=== PATIENT | male | born 1955 | race Caucasian/White ===

== ENCOUNTER 2019-06-13 13:12 | Emergency (ER) | payer OTHER, SELFPAY ==
[2019-06-13] VITALS (23 sets, daily range): BP systolic 116–155; BP diastolic 66–91; PULSE 59–82; RESP 11–30; TEMP 37.1–37.2; O2SAT 99–100
--- NOTE | 2019-06-13 13:15 | DI.RAD_ITS ---
SYMPTOMS/DIAGNOSIS: TRAUMA PORTABLE CHEST AT 13:25 HOURS: There are no prior comparison exams. The heart size is normal. There is no mediastinal widening. The aorta is mildly tortuous. The lungs are clear. There is a tiny right apical pneumothorax. No rib fractures are identified. IMPRESSION: Small right apical pneumothorax.
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
[2019-06-13] MEDS: Normal Saline 1,000 ML 1000 ML IV (13:40)
[2019-06-13 13:45] LABS: Abs Immature Grans 0.02 k/cumm (0.0-0.09); Absolute Basophil Count 0.04 k/cumm (0.0-0.2); Absolute Eosinophil Count 0.46 k/cumm (0.0-0.7); Absolute Lymphocyte Count 1.43 k/cumm (1.2-3.4); Absolute Monocyte Count 0.61 k/cumm (0.11-0.7); Absolute Neutrophil Count 5.45 k/cumm (1.2-6.7); Basophils % 0.5; Eosinophils % 5.7; HCT 43.8 % (40.0-50.0); Immature Grans % 0.2; Lymphocytes % 17.9; Mean Corp. HGB Concentration 34.2 g/dL (32.0-36.0); Mean Corpuscular Hemoglobin 30.9 pg (27.0-33.0); Mean Corpuscular Volume 90.1 fL (80-95); Mean Platelet Volume 10.9 fL (8.0-11.0); Monocytes % 7.6; Neutrophils % 68.1; Platelet Count 262 x1000/uL (130-400); RBC 4.86 m/cumm (4.50-6.00); RBC Distribution Width 13.2 % (11.8-14.1); White Blood Cell Count 8.01 k/cumm (4.4-10.8)
[2019-06-13 14:01] LABS: ALT 45 U/L (12-78); AST 36 U/L (15-37); Alkaline Phosphatase 74 U/L (46-116); Anion Gap 12.4 mmol/L (3-11); BUN 15 mg/dL (7-18); Bilirubin, Total 0.5 mg/dL (0.2-1.0); CO2 23.6 mmol/L (21.0-32.0); CREATININE 1.13 mg/dL (0.70-1.30); Calcium 9.1 mg/dL (8.5-10.1); Chloride 101 mmol/L (98-107); Glucose 131 mg/dL (70-100); Potassium 4.4 mmol/L (3.5-5.1); Sodium 137 mmol/L (136-145); Total Protein 8.1 g/dL (6.4-8.2)
[2019-06-13 14:05] LABS: Prothrombin Time 9.8 sec (9.3-11.0)
[2019-06-13] MEDS: Omnipaque 350 MG/ML 100 ML BTL IJ (14:24)
--- NOTE | 2019-06-13 15:32 | NUR.NOTE ---
Nursing Note: Patient has [facility] appt 06/15/2019 @ 5305. He is to go to diagnostic imaging @ 6331 prior to this appt. Yolanda Quevedo.
== END 2019-06-13 15:50 | disposition home or self-care (01) ==
PROVIDERS: Emergency Provider Student in an Organized Health Care Education/Training Program
DX: M54.6 Pain in thoracic spine (principal); R07.9 Chest pain, unspecified; R06.02 Shortness of breath; S22.41XA Multiple fractures of ribs, right side, initial encounter for closed fracture; S27.0XXA Traumatic pneumothorax, initial encounter; S27.321A Contusion of lung, unilateral, initial encounter; V18.0XXA Pedal cycle driver injured in noncollision transport accident in nontraffic accident, initial encounter; Y93.55 Activity, bike riding
CPT/HCPCS: 36415; 74177; 80053; 86850; 86900; 86901; 93005; 96361; 96374; 99285; 71045; 71260; 85025; 85610; 93010; J3490

== ENCOUNTER 2019-06-15 01:27 | Outpatient (CLI) | payer OTHER, SELFPAY ==
--- NOTE | 2019-06-15 08:53 | DI.RAD_ITS ---
SYMPTOM/DIAGNOSIS: PNEUMOTHORAX, RT J93.9 PA AND LATERAL CHEST: 06/15/19 The previously described right apical pneumothorax is again noted but has decreased in size in comparison with examination of 06/13/19. The lungs otherwise remain well expanded and clear. No pleural effusion is seen. Cardiac size within normal limits. CONCLUSION: :Interval decrease in size of small right apical pneumothorax. No additional new findings.
== END 2019-06-15 01:47 ==
PROVIDERS: Visit Provider Surgery
DX: J93.9 Pneumothorax, unspecified (principal)
CPT/HCPCS: 71046

== ENCOUNTER 2021-09-11 10:29 | Emergency (ER) | payer OTHER, SELFPAY ==
[2021-09-11] VITALS (23 sets, daily range): BP systolic 141–166; BP diastolic 83–113; PULSE 72–90; RESP 1–23; TEMP 36.4–36.6; O2SAT 98–100
--- NOTE | 2021-09-11 10:30 | RT.EKG_ITS ---
APPROVED REPORT Exam: Resting ECG Reason for Exam: sob Patient Location: E HR:76 bpm ECG Measurements Heart Rate 76 AXIS KS 143 P 64 QRSd 90 QRS 78 QT 358 T 50 QTc 403 Conclusion Sinus rhythm...normal P axis, V-rate 60- 99. Sinus. No STEMI. I have reviewed and interpreted ECG and agree with software generated interpretation.
[2021-09-11 11:35] LABS: Abs Immature Grans 0.02 10^3/uL (0.0-0.06); Absolute Basophil Count 0.08 10^3/uL (0.0-0.2); Absolute Lymphocyte Count 1.35 10^3/uL (1.2-3.4); Absolute Monocyte Count 0.51 10^3/uL (0.1-0.8); Absolute Neutrophil Count 2.41 10^3/uL (1.2-6.7); Basophils % 1.6; Eosinophils % 10.3; HCT 45.1 % (40.0-50.0); HGB 14.8 g/dL (13.5-17.5); Immature Grans % 0.4; Lymphocytes % 27.7; MCH 30.9 pg (27.0-33.0); MCHC 32.8 % (32.0-36.0); MCV 94.2 fL (80-95); MPV 10.2 fL (8.0-11.0); Monocytes % 10.5; Neutrophils % 49.5; Nucleated RBC 0 %; Platelet Count 298 10^3/uL (130-400); RBC 4.79 10^6/uL (4.36-5.78); RDW 12.5 % (11.8-14.1); RDW-SD 43.9 fL; WBC 4.87 10^3/uL (4.4-10.8)
[2021-09-11 11:35] LABS: Source Nasal/Nares
[2021-09-11 11:55] LABS: ALT 32 U/L (16-63); AST 26 U/L (15-37); Alkaline Phosphatase 91 U/L (46-116); Anion Gap 6.9 mmol/L (3-11); BUN 12 mg/dL (7-18); Bilirubin, Total 0.4 mg/dL (0.2-1.0); CO2 29.1 mmol/L (21.0-32.0); Calcium 9.2 mg/dL (8.5-10.1); Chloride 103 mmol/L (98-107); Glucose 99 mg/dL (74-106); Magnesium 2.3 mg/dL (1.8-2.4); NT-proBNP 58 pg/mL (<300); Potassium 4.2 mmol/L (3.5-5.1); Sodium 139 mmol/L (136-145); Total Protein 8.1 g/dL (6.4-8.2)
[2021-09-11 11:57] LABS: Troponin I < 0.05 ng/mL (<0.06)
[2021-09-11 12:18] LABS: Bilirubin Negative (Negative); Blood Negative (Negative); Clarity Clear (Clear); Glucose Negative (Negative); Ketones Negative (Negative); Leukocyte Esterase Negative (Negative); Nitrite Negative (Negative); Urobilinogen 0.2 EU/dL (Up TO 0.2); pH 8.5 (5-8)
[2021-09-11 12:31] LABS: COVID-19 PCR Negative (Negative)
--- NOTE | 2021-09-11 12:46 | DI.CT_ITS ---
Exam(s) CT CHEST PE CTA EXAM: CT CHEST PE CTA CLINICAL HISTORY: shortness of breath. TECHNIQUE: Imaging Protocol: CT angiography of the chest was performed using pulmonary embolus marcos col. Multi planar reconstructions were performed. CONTRAST MATERIAL: Intravenous: Omnipaque 350 Contrast volume: 100 cc COMPARISON: CT CT CHEST/ABD/PEL W from 06/13/2019 FINDINGS: CHEST: PULMONARY ARTERIES: There are no intraluminal filling defects to suggest acute pulmonary emboli. LUNGS: There are no infiltrates nor evidence of pulmonary infarction.. There are no pleural effusions . MEDIASTINUM: There is no hilar nor mediastinal adenopathy. Visualized thyroid unremarkable. CARDIAC: Heart size is upper normal. There is no pericardial effusion.Caliber of the thoracic aorta is within normal limits. There is no significant shift of the interventricular septum. PARTIALLY VISUALIZED UPPERMOST ABDOMEN: No obvious findings OSSEOUS: No significant osseous lesions.. IMPRESSION: 1. No evidence of acute pulmonary emboli. No evidence of pulmonary infarction.No pleural effusions. 2. No infiltrates nor ominous pulmonary nodules. 3. No intrathoracic adenopathy. RADIATION DOSE DELIVERED: 354.46mGy.cm Total DLP DATA REPOSITORY: All CT scans at this facility are submitted to the National Radiology Data Registry (NRDR) Dose Index Registry (DIR) with the [employer] (A[employer]). RADIATION OPTIMIZATION: All CT scans at this facility use at least one of these dose optimization te chniques: automated exposure control; mA and/or kV adjustment per patient size (includes targeted exa ms where dose is matched to clinical indication); or iterative reconstruction.
[2021-09-11] MEDS: Albuterol 2.5 MG/3 ML INH SOLN VIAL UPD (12:54)
--- NOTE | 2021-09-11 14:01 | ED.GENADUL_ITS ---
Discharge Plan Disposition Patient Disposition: HOME Condition: Stable Discharge Details Clinical Impression: Acute dyspnea Primary Care Provider: Beronica,Local ED Provider: Jeaneth Gonzalez Home Meds and New Rx's Prescriptions: Continued magnesium 500 mg Tablet 500 mg PO DAILY RF: 0 aspirin 325 mg Tablet 325 mg PO DAILY RF: 0 meloxicam [Mobic] 15 mg Tablet 15 mg PO DAILY RF: 0 lorazepam 0.5 mg tablet 0.5 mg PO DAILY PRNRF: 0 testosterone 10 mg/0.5 gram /actuation gel in metered-dose pump 1 pump topical DAILY RF: 0 acetaminophen [Acetaminophen Extra Strength] 500 mg Tablet 1,000 mg PO HS PRNRF: 0 Discharge Instructions Instructions: Dyspnea (ED) Additional Instructions: please 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 refrain from any strenuous exertion return with chest pain, worsening dyspnea, or should you develop progression of symptoms Discharge Data Discharge Date/Time-TO BE ENTERED AT DEPARTURE: 09/11/21 14:45 Medical Decision Making Patient has a heart score of 3, 1 troponin was checked as patient has had symptoms for 4 days Denies any current chest pain or short of breath EKG without acute abnormality, CTA does not show acute abnormality Diagnostic labs are negative for acute abnormality Patient is aware that his tests are negative, aside from his hyperlipidemia and age he has a relatively low risk for coronary artery disease, mother prefers a 3, we did talk about admission versus discharge, patient states he feels he would like to follow-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 Lab Data Lab results reviewed: Yes I reviewed the patient's lab results. ECG Data Attestation: I personally reviewed and interpreted this ECG (s) as follows: HPI General Mode of arrival: ambulatory . Date/Time Provider Initiated Documentation: 09/11/21 10:53 . Limitations to Documentation: no limitations . Information obtained by: patient . HPI Narrative: This 66-year-old male presents with family for the past 5 days. He is status post right knee replacement 5 weeks ago in [facility]. He states he actually felt quite well and his knee is healing nicely some breathlessness but actually improved with e xertion over the past 5 days. He states that this exacerbated when he is at rest and when he exerts himself or travels outside, his symptoms actually improved. He states that his symptoms are predominantly from 10:00 until 1:59 in the afternoon and then completely dequan. He denies any chest comfort. He denies any new calf pain or swelling. He has some mild discomfort in the actual knee but denies any worsening pain. He is otherwise reportedly healthy aside from history of hyperlipidemia. His father did have an MS at 64 years old reportedly. Patient does not smoke tobacco, denies any pain. Denies any current dizziness or weakness. Has been intermittently lightheaded. Denies any new medications. He discontinued the Mobic which she was wondering if it may have been contributing to his symptoms 2 days ago. He did call the nurse on- call for his physician and she recommended that he be pulmonary embolism. He denies any falls or injuries. Related Data Home Medications Medication Instructions Recorded Confirmed acetaminophen [Acetaminophen Extra 1,000 mg PO HS PRN 09/11/21 09/11/21 Strength] aspirin 325 mg PO DAILY 09/11/21 09/11/21 lorazepam 0.5 mg PO DAILY PRN 09/11/21 09/11/21 magnesium 500 mg PO DAILY 09/11/21 09/11/21 meloxicam [Mobic] 15 mg PO DAILY 09/11/21 09/11/21 testosterone 1 pump TOPICAL DAILY 09/11/21 09/11/21 Allergies Allergy/AdvReac Type Severity Reaction Status Date / Time No Known Allergies Allergy Verified 09/11/21 10:53 General Stated Complaint: SOB ALEXIS: 2 Review of Systems All systems reviewed & are unremarkable except as noted in HPI and below PFSH Medical History (Updated 09/11/21 @ 14:05 by BOO Harris) Pneumothorax on right Rib fractures Social History Smoking/Tobacco Use Status: Never Smoking risk assessment performed?: Yes Alcohol Intake: current Alcohol Intake frequency: 0-2 drinks per day Alcohol ty pe: beer Drug use: Never Substance use type: does not use Do you feel safe at home: Yes Do you feel safe in your relationship?: Yes Exam Const General: cooperative and comfortable Orientation: alert and oriented x3 Eyes Pupils: PERRL Chest Chest: normal inspection of the chest Resp Effort & Inspection: normal respiratory effort Auscultation: clear to auscultation bilaterally Cardio Rate: regular rate Rhythm: regular rhythm GI Inspection: normal to inspection Skin General skin exam: no rashes or lesions noted Neuro General: patient alert and patient oriented x3 Extrem Other: Neurovascularly intact distally, right knee with well healing laceration and postoperative site, no dehiscence, no calf swelling or tenderness Course Vital Signs Vital signs: Vital Signs Temperature 36.6 C 09/11/21 10:49 Pulse 75 09/11/21 10:49 Respiratory Rate 15 09/11/21 10:49 Blood Pressure 159/91 H 09/11/21 10:49 Pulse Oximetry 100 09/11/21 10:49 Temperature 36.6 C 09/11/21 10:49 Temperature Source Temporal Artery Scan 09/11/21 10:49 Pulse 76 09/11/21 12:15 Pulse 82 09/11/21 12:15 Respiratory Rate 23 09/11/21 12:15 Respiratory Effort Non-Labored 09/11/21 11:35 Respiratory Depth Normal 09/11/21 11:35 Respiratory Pattern Normal 09/11/21 11:35 Blood Pressure 141/98 H 09/11/21 12:15 Blood Pressure Mean 106 09/11/21 12:15 Blood Pressure Position Supine 09/11/21 10:49 Pulse Oximetry 100 09/11/21 12:54 Oxygen Delivery Method Room Air 09/11/21 12:54 Oxygen Flow Rate 0 09/11/21 12:54 Pain Level 0 09/11/21 10:49 Lab/Test Results Lab/Test Results: Laboratory Tests Range/Units 09/11/21 09/11/21 09/11/21 11:20 11:25 11:25 WBC (4.4-10.8) 10^3/uL 4.87 RBC (4.36-5.78) 10^6/uL 4.79 Hgb (13.5-17.5) g/dL 14.8 Hct (40.0-50.0) % 45.1 MCV (80-95) fL 94.2 MCH (27.0-33.0) pg 30.9 MCHC (32.0-36.0) % 32.8 RDW (11.8-14.1) % 12.5 Plt Count (130-400) 10^3/uL 298 MPV (8.0-11.0) fL 10.2 Immature Gran % 0.4 Neutrophils % 49.5 Lymphocytes % 27.7 Monocytes % 10.5 Eosinophils % 10.3 Basophils % 1.6 Nucleated RBC % % 0 Absolute Neutrophils (1.2-6.7) 10^3/uL 2.41 Absolute Lymphocytes (1.2-3.4) 10^3/uL 1.35 Absolute Monocytes (0.1-0.8) 10^3/uL 0.51 Absolute Eosinophils (0.0-0.7) 10^3/uL 0.50 Absolute Basophils (0.0-0.2) 10^3/uL 0.08 Sodium (136-145) mmol/L 139 Potassium (3.5-5.1) mmol/L 4.2 Chloride (98-107) mmol/L 103 Carbon Dioxide (21.0-32.0) mmol/L 29.1 Anion Gap (3-11) mmol/L 6.9 BUN (7-18) mg/dL 12 Creatinine (0.70-1.30) mg/dL 1.0 Estimated GFR/1.73 m2 (mL/min/1.73m2) >= 60.00 Glucose (74-106) mg/dL 99 Calcium (8.5-10.1) mg/dL 9.2 Magnesium (1.8-2.4) mg/dL 2.3 Total Bilirubin (0.2-1.0) mg/dL 0.4 AST (15-37) U/L 26 ALT (16-63) U/L 32 Alkaline Phosphatase (46-116) U/L 91 Troponin I (<0.06) ng/mL < 0.05 NT-Pro-B Natriuret Pep (<300) pg/mL 58 Total Protein (6.4-8.2) g/dL 8.1 Albumin (3.4-5.0) g/dL 4.0 Urine Color (Yellow) Yellow Urine Clarity (Clear) Clear Urine pH (5-8) 8.5 H Ur Specific [place] (1.005-1.025) 1.020 Urine Protein (Negative) mg/dL Negative Urine Ketones (Negative) mg/dL Negative Urine Blood (Negative) Negative Urine Nitrite (Negative) Negative Urine Bilirubin (Negative) Negative Urine Urobilinogen (Up TO 0.2) EU/dL 0.2 Ur Leukocyte Esterase (Negative) Negative Urine Glucose (Negative) mg/dL Negative COVID-19 Source SARS-CoV-2 (PCR) (Negative) Range/Units 09/11/21 11:30 WBC (4.4-10.8) 10^3/uL RBC (4.36-5.78) 10^6/uL Hgb (13.5-17.5) g/dL Hct (40.0-50.0) % MCV (80-95) fL MCH (27.0-33.0) pg MCHC (32.0-36.0) % RDW (11.8-14.1) % Plt Count (130-400) 10^3/uL MPV (8.0-11.0) fL Immature Gran % Neutrophils % Lymphocytes % Monocytes % Eosinophils % Basophils % Nucleated RBC % % Absolute Neutrophils (1.2-6.7) 10^3/uL Absolute Lymphocytes (1.2-3.4) 10^3/uL Absolute Monocytes (0.1-0.8) 10^3/uL Absolute Eosinophils (0.0-0.7) 10^3/uL Absolute Basophils (0.0-0.2) 10^3/uL Sodium (136-145) mmol/L Potassium (3.5-5.1) mmol/L Chloride (98-107) mmol/L Carbon Dioxide (21.0-32.0) mmol/L Anion Gap (3-11) mmol/L BUN (7-18) mg/dL Creatinine (0.70-1.30) mg/dL Estimated GFR/1.73 m2 (mL/min/1.73m2) Glucose (74-106) mg/dL Calcium (8.5-10.1) mg/dL Magnesium (1.8-2.4) mg/dL Total Bilirubin (0.2-1.0) mg/dL AST (15-37) U/L ALT (16-63) U/L Alkaline Phosphatase (46-116) U/L Troponin I (<0.06) ng/mL NT-Pro-B Natriuret Pep (<300) pg/mL Total Protein (6.4-8.2) g/dL Albumin (3.4-5.0) g/dL Urine Color (Yellow) Urine Clarity (Clear) Urine pH (5-8) Ur Specific [place] (1.005-1.025) Urine Protein (Negative) mg/dL Urine Ketones (Negative) mg/dL Urine Blood (Negative) Urine Nitrite (Negative) Urine Bilirubin (Negative) Urine Urobilinogen (Up TO 0.2) EU/dL Ur Leukocyte Esterase (Negative) Urine Glucose (Negative) mg/dL COVID-19 Source Nasal/Nares SARS-CoV-2 (PCR) (Negative) Negative PAWSS Have you Been Recently Intoxicated or Drunk Within the Last 30 days?: No Have you Ever Experienced Previous Episodes of Alcohol Withdrawal?: No Have you ever Experienced Withdrawal Seizures?: No Have you ever Experienced Delirium Tremens(DT)s?: No Have you ever undergone Alcohol Rehabilitation Treatment (i.e, inpt ot outpatient treatment programs)?: No Have you ever Experienced Blackouts?: No Have you ever Combined Alcohol with other Downers within the last 90 days?: No Have you ever Combined Alcohol with any other Substance of Abuse during the last 90 days?: No Positive Blood Alcohol level on Presentation? [PCS.BAL]: No Evidence of Increased Autonomic Activity (i.e. HR>120, tremor, sweating, agitation, nausea)?: No Result: 0
== END 2021-09-11 14:45 | disposition home or self-care (01) ==
PROVIDERS: Emergency Provider Physician Assistant
DX: R06.00 Dyspnea, unspecified (principal); R06.02 Shortness of breath
CPT/HCPCS: 36415; 71275; 80053; 87635; 93005; 94640; 99285; 81003; 83735; 83880; 84484; 85025; 93010; 99284; J7613

== ENCOUNTER 2023-04-12 07:11 | Observation (INO) | payer OTHER, SELFPAY ==
[2023-04-12] VITALS (32 sets, daily range): BP systolic 121–189; BP diastolic 67–101; PULSE 56–97; RESP 9–28; TEMP 36.1–36.7; O2SAT 94–99
--- NOTE | 2023-04-12 | DI.MRI_ITS ---
Exam(s) MR BRAIN WO EXAM: MR BRAIN WO CLINICAL HISTORY: TIA (vertiginous symptoms) TECHNIQUE: Multiplanar multisequence MRI of the brain was performed. COMPARISON: CT CT BRAIN NECK CTA from 04/12/2023 FINDINGS: VENTRICLES AND EXTRA AXIAL SPACES: Normal in size and morphology for the patient's age. MIDLINE SHIFT: None. CEREBRAL PARENCHYMA: No focus of restricted diffusion to suggest acute infarct. No space-occupying le narciso identified. There are few scattered hyperintense foci in the white matter on the FLAIR and T2 we ighted images likely reflecting small vessel ischemic disease. HEMORRHAGE: None. BRAINSTEM/CEREBELLUM: Normal. CALVARIUM: Normal. VISUALIZED PARANASAL SINUSES/MASTOIDS:There is mucosal thickening in the maxillary sinuses and ethmoi d air cells bilaterally. The remaining visualized paranasal sinuses and the mastoid air cells are cl ear. [place]: Normal flow void. PITUITARY GLAND: Unremarkable. OTHER FINDINGS: None. IMPRESSION: 1. No acute infarct is identified. 2. Scattered hyperintense white matter foci on the FLAIR and T2 weighted images likely reflecting sma ll vessel ischemic disease. 3. Mild sinus disease. DATA REPOSITORY:
--- NOTE | 2023-04-12 06:30 | RT.EKG_ITS ---
APPROVED REPORT Exam: Resting ECG Reason for Exam: dizziness Patient Location: E HR:62 bpm ECG Measurements Heart Rate 62 AXIS AK 153 P 80 QRSd 95 QRS 80 QT 415 T 48 QTc 422 Conclusion Sinus rhythm...normal P axis, V-rate 60- 99 sinus rhythm, normal axis, normal intervals ,nonischemic
--- NOTE | 2023-04-12 06:45 | DI.CT_ITS ---
Exam(s) CT BRAIN NECK CTA EXAM: CT BRAIN NECK CTA CLINICAL HISTORY: vertigo, left ear pain, headache. TECHNIQUE: Imaging Protocol: Axial CT angiography was performed with multi-slice acquisition and mu lti-planar and/or 3D reconstructions. CONTRAST MATERIAL: Intravenous: Omnipaque 350 contrast volume:85 mL COMPARISON: CT CT CHEST PE CTA from 09/11/2021 FINDINGS: CT Head W/O and W: Ventricles and Extra axial spaces: Normal in size and morphology for the patient's age. Hemorrhage: None. Cerebral parenchyma: No acute territorial infarct. There is a normal michaud-white matter differentiati on. Midline shift: None. Brainstem/Cerebellum: Normal. Calvarium: Normal. Visualized Paranasal sinuses/Mastoids: There is mild mucosal thickening in the maxillary sinuses bila terally. There is also mild mucosal thickening in the ethmoid air cells and sphenoid sinuses. No fl uid levels are seen in the visualized paranasal sinuses. The mastoid air cells are clear. Soft Tissues: Unremarkable. Enhancement: Unremarkable. CTA Neck W: Common Carotid: Right: No dissection, occlusion or significant stenosis. There is atherosclerosis of the distal righ t common carotid artery. Left: No dissection, occlusion or significant stenosis. Atherosclerosis is seen in the carotid bulb. External Carotid: Right: No occlusion or significant stenosis. Left: No occlusion or significant stenosis. Internal Carotid: Right: No dissection, occlusion or significant stenosis. There is mild atherosclerosis seen at the o rigin of the right internal carotid artery. Left: No dissection, occlusion or significant stenosis. There is mild atherosclerosis seen at the or igin of the left internal carotid artery. Vertebral Artery: Right: No dissection, occlusion or significant stenosis. Left: There is a linear lucency through the vertebral artery at the level of the body of C2. (Series 16, image 407 and 408.). No occlusion or stenosis is seen. Lung Apices: Normal. Bones: Within normal limits for the patient's age. Soft Tissues: Normal. Thyroid gland: Unremarkable. CTA Brain W: Internal Carotid Arteries: Mild atherosclerosis. No occlusion, aneurysm or significant stenosis. Anterior Cerebral Arteries: Right: No aneurysm, occlusion or significant stenosis. Left: No aneurysm, occlusion or significant stenosis. Middle Cerebral Arteries: Right: No aneurysm, occlusion or significant stenosis. Left: No aneurysm, occlusion or significant stenosis. Posterior Cerebral Arteries: Right: No aneurysm, occlusion or significant stenosis. Left: No aneurysm, occlusion or significant stenosis. Vertebral Arteries: Right: No aneurysm, occlusion or significant stenosis. Left: No aneurysm, occlusion or significant stenosis. Basilar Artery: No aneurysm, occlusion or significant stenosis. IMPRESSION: 1. No large vessel occlusion or significant stenosis on the CT angiography of the head. 2. No acute intracranial process. 3. Lucency seen through the left vertebral artery at the level of C2. This may represent a dissection . 4. Findings were discussed with Dr. Lucía Benton at 10:50 a.m. on 04/12/2023. RADIATION DOSE DELIVERED: 2,316.65mGy.cm Total DLP DATA REPOSITORY: All CT scans at this facility are submitted to the National Radiology Data Registry (NRDR) Dose Index Registry (DIR) with the [employer] (ACR). RADIATION OPTIMIZATION: All CT scans at this facility use at least one of these dose optimization te chniques: automated exposure control; mA and/or kV adjustment per patient size (includes targeted exa ms where dose is matched to clinical indication); or iterative reconstruction.
--- NOTE | 2023-04-12 06:45 | DI.RAD_ITS ---
Exam(s) XR CHEST 2V PA LATERAL EXAM: XR CHEST 2V PA LATERAL CLINICAL HISTORY: vertigo TECHNIQUE: 2D digital imaging was performed of the chest. Two images were obtained. PA and lateral views were obtained. COMPARISON: CR XR CHEST 2V PA LATERAL from 06/15/2019 FINDINGS: MEDIASTINUM: Normal. HEART: Normal. PULMONARY VASCULATURE: Normal. LUNGS: Clear. PLEURAL SPACE: No pleural effusion or pneumothorax. BONE:Within normal limits for the patient's age. OTHER FINDINGS:Normal. IMPRESSION: No acute pulmonary findings. DATA REPOSITORY: RADIATION DOSE DELIVERED:
--- NOTE | 2023-04-12 06:55 | ED.GENADUL_ITS ---
Discharge Plan Discharge Details Chief Complaint: Dizzy/Sync Primary Care Provider: Unknown,Unknown ED Provider: Regino Franz Home Meds and New Rx's Prescriptions: No Action magnesium 500 mg Tablet 500 mg PO DAILY aspirin 325 mg Tablet 325 mg PO DAILY meloxicam [Mobic] 15 mg Tablet 15 mg PO DAILY lorazepam 0.5 mg tablet 0.5 mg PO DAILY PRN testosterone 10 mg/0.5 gram /actuation gel in metered-dose pump 1 pump topical DAILY acetaminophen [Acetaminophen Extra Strength] 500 mg Tablet 1,000 mg PO HS PRN Medical Decision Making 68-year-old male awoke with left ear ringing a loud sound, got up and felt off balance fell to the ground, no loss of conscious, denies chest pain or shortness of breath. Endorses resolution of symptoms. No chest pain or shortness of breath. No history of coronary disease or stroke. Patient alert oriented cranial nerves II through XII intact normal speech 5-5 strength upper and lower extremities no ataxia. Noted to be hypertense on arrival. Consider peripheral vertigo versus hypertensive urgency/hypertensive emergency must consider CVA ischemic versus hemorrhagic versus sinus pressure versus orthostatic presyncope versus atypical ACS. Will obtain CT CTA head neck, labs, chest x-ray EKG, trial of meclizine Zofran dexamethasone, fluids close reassessment. 7: 32 patient resting notably no acute distress disposition pending results of blood work and imaging as well as reassessment of symptoms. Patient signed out to Dr. Benton for reassessment and disposition. HPI General Date/Time Provider Initiated Documentation: 04/12/23 07:32 . HPI Narrative: 68-year-old male presents after near syncopal episode awoke this morning with loud sound in his left ear ringing after she attempted to walk and felt off balance and collapsed to the floor. Endorses improved symptomatology. No headache no nausea no vomiting no chest pain or shortness of breath. Related Data Home Medications Medication Instructions Recorded Confirmed acetaminophen 500 mg tablet 1,000 mg PO HS PRN 09/11/21 09/11/21 (Acetaminophen Extra Strength) aspirin 325 mg tablet 325 mg PO DAILY 09/11/21 09/11/21 lorazepam 0.5 mg tablet 0.5 mg PO DAILY PRN 09/11/21 09/11/21 magnesium 500 mg tablet 500 mg PO DAILY 09/11/21 09/11/21 meloxicam 15 mg tablet (Mobic) 15 mg PO DAILY 09/11/21 09/11/21 testosterone 10 mg/0.5 1 pump topical DAILY 09/11/21 09/11/21 gram/actuation transdermal gel pump Allergies Allergy/AdvReac Type Severity Reaction Status Date / Time [id number] Reductase Allergy Unverified 04/12/23 07:32 Inhibitor General Stated Complaint: Dizzy/Sync ALEXIS: 2 Review of Systems Narrative: Review of Systems Constitutional: negative Eyes: negative ENT: Tinnitus Cardiovascular: negative Respiratory: negative Gastrointestinal: negative : negative Musculoskeletal: negative Skin: negative Neurologic: Dizziness Psych: negative PFSH All Active Problems (Updated 09/11/21 @ 14:05 by BOO Harris) Acute dyspnea (Acute) Asymmetrical sensorineural hearing loss (Acute) Vertigo (Acute) Unilateral deafness (Acute) Tinnitus of left ear (Acute) Rib fractures (Acute) Pneumothorax on right (Acute) Social History Smoking/Tobacco Use Status: Never Smoking risk assessment performed?: Yes Alcohol Intake: current Alcohol Intake frequency: 0-2 drinks per day Alcohol type: beer Drug use: Never Substance use type: does not use Do you feel safe at home: Yes Do you feel safe in your relationship?: Yes Exam Narrative Exam Narrative: Physical Examination General: alert, awake, cooperative, resting comfortably, no acute distress HEENT: normocephalic, atraumatic; PERRL, EOM intact, conjunctiva normal; no nasal discharge; moist mucous membranes, oral and pharyngeal mucosa normal, tolerating secretions; TMs clear bilaterally Neck: supple, trachea midline; full ROM Chest: normal to inspection Respiratory: normal respiratory effort, speaking in full sentences, clear to auscultation, no wheezing, rales or rhonchi Cardiac: regular rate, regular rhythm, S1S2 intact, no murmurs rubs or gallops GI: abdomen soft, non-tender, non-distended; no palpable mass or hepatosp lenomegaly Skin: no lesions, rashes or trauma appreciated Neuro: AAOx3, normal speech, moving all extremities; cranial nerves II through XII intact, 5/5 strength upper and lower extremities, no truncal ataxia Psych: Appropriate mood and affect Course Vital Signs Vital signs: Vital Signs Temperature 36.7 C 04/12/23 06:39 Pulse 62 04/12/23 06:39 Respiratory Rate 16 04/12/23 06:39 Blood Pressure 189/101 H 04/12/23 06:39 Pulse Oximetry 97 04/12/23 06:39 Temperature 36.7 C 04/12/23 06:39 Temperature Source Oral 04/12/23 06:39 Pulse 62 04/12/23 06:39 Respiratory Rate 16 04/12/23 06:39 Blood Pressure 189/101 H 04/12/23 06:39 Blood Pressure Position Supine 04/12/23 06:39 Pulse Oximetry 97 04/12/23 06:39 Oxygen Delivery Method Room Air 04/12/23 06:39 Oxygen Flow Rate 0 04/12/23 06:39 Pain Level 0 04/12/23 06:39
[2023-04-12] MEDS: Dexamethasone 10 MG/ML VIAL IVP (07:25)
[2023-04-12] MEDS: Meclizine 25 MG TAB PO (07:26)
[2023-04-12] MEDS: Normal Saline 500 ML 1000 ML IV (07:26)
[2023-04-12 07:40] LABS: Abs Immature Grans 0.02 10^3/uL (0.0-0.06); Absolute Basophil Count 0.08 10^3/uL (0.0-0.2); Absolute Eosinophil Count 0.85 10^3/uL (0.0-0.7); Absolute Lymphocyte Count 1.91 10^3/uL (1.2-3.4); Absolute Monocyte Count 0.73 10^3/uL (0.1-0.8); Basophils % 1.3; Eosinophils % 13.5; HCT 45.9 % (40.0-50.0); HGB 15.3 g/dL (13.5-17.5); Immature Grans % 0.3; Lymphocytes % 30.4; MCH 30.5 pg (27.0-33.0); MCHC 33.3 % (32.0-36.0); MCV 91 fL (80-95); MPV 10.9 fL (8.0-11.0); Monocytes % 11.6; Neutrophils % 42.9; Platelet Count 241 10^3/uL (130-400); RBC 5.02 10^6/uL (4.36-5.78); RDW 12.6 % (11.8-14.1); RDW-SD 42.2 fL; WBC 6.29 10^3/uL (4.4-10.8)
[2023-04-12 07:46] LABS: INR 0.9 (0.9-1.1); PTT Activated 26.6 sec (21.5-31.9); Prothrombin Time 9.6 sec (9.3-11.0)
[2023-04-12 07:50] LABS: ALT 42 U/L (16-63); AST 33 U/L (15-37); Albumin 3.7 g/dL (3.4-5.0); Alkaline Phosphatase 94 U/L (46-116); Anion Gap 6.4 mmol/L (3-11); BUN 13 mg/dL (7-18); Bilirubin, Total 0.9 mg/dL (0.2-1.0); CO2 28.6 mmol/L (21.0-32.0); CREATININE 1.3 mg/dL (0.70-1.30); Calcium 8.8 mg/dL (8.5-10.1); Chloride 102 mmol/L (98-107); Estimated GFR 60.59 (mL/min/1.73m2); Glucose 101 mg/dL (74-106); Potassium 3.9 mmol/L (3.5-5.1); Sodium 137 mmol/L (136-145); Total Protein 7.8 g/dL (6.4-8.2); Troponin I < 50 ng/L (<or=60)
[2023-04-12] MEDS: Normal Saline - Diluent 50 ML VIAL IJ (08:10)
[2023-04-12] MEDS: Omnipaque 350 MG/ML 500 ML BTL-Imaging package IJ (08:11)
[2023-04-12] MEDS: Normal Saline 1,000 ML 1000 ML IV (08:39)
--- NOTE | 2023-04-12 10:16 | NUR.NOTE ---
Nursing Note: This RN took report at 1000. Pt in bed and comfortable at time of report. Pt updated with plan of care and pt has call light within reach.
--- NOTE | 2023-04-12 10:43 | W.EDPROG ---
Date of service: 04/12/23 Time of Service: 12:25 Medical Decision Making I, Mateusz Benton, took signout on this patient. In summary 68-year-old gentleman who presented with vertiginous type symptoms and now resolved. Symptom-free with normal neurologic exam at the time of my evaluation and NIH score of 0. Labs, EKG, and chest x-ray unremarkable. Signed out to me pending CT head and CTA head and neck. CT head unremarkable but CTA showing possible left vertebral artery dissection versus artifact. He was reporting some right-sided neck pain. In the context of his symptoms and this finding I reached out to neurology and spoke to Joanna Miranda who recommends admission for MRI, echo, and medical management. I have given 324 of aspirin. Patient initially hesitant to stay but then agreeable to stay in the hospital. Still symptom-free. Admitted to the hospitalist for further treatment and monitoring. Medical Records Medical records reviewed: Yes I reviewed the patient's medical records. Imaging Data Radiologic Study: Imaging: CT Scan (ct head) Radiologist's impression: IMPRESSION: 1. No large vessel occlusion or significant stenosis on the CT angiography of the head.? 2. No acute intracranial process.? 3. Lucency seen through the left vertebral artery at the level of C2. This may represent a dissection. 4. Findings were discussed with Dr. Lucía Benton at 10:50 a.m. on 04/12/2023. Radiologic Study #2: Attestation: I personally reviewed and interpreted this imaging study as follows: Imaging: X-Ray (chest) Radiologist's impression: Unremarkable Lab Data Lab results reviewed: Yes I reviewed the patient's lab results. ECG Data Attestation: I personally reviewed and interpreted this ECG (s) as follows: Prior ECG tracings: available for review Interpretation: Normal sinus rhythm with normal rate and otherwise unremarkable EKG with no ST or T wave changes. Critical Care Time Critical Care Time Critical Care Time: Yes Total Critical Care Time: 30 Sign Out Sign Out Data: Sign Out Comment: left ear tinnitus, balance issue, collapse; pending CTA head, labs, reassessment for disposition Last updated by Regino Franz MD at 04/12/23 07:34 Discharge Plan Disposition Patient Disposition: Admit to [facility] Discharge Details Chief Complaint: Dizzy/Sync Clinical Impression: Vertigo, Brain TIA, Dissection, vertebral artery Primary Care Provider: Unknown,Unknown ED Provider: Mateusz Benton Home Meds and New Rx's Prescriptions: No Action magnesium 500 mg Tablet 500 mg PO DAILY aspirin 325 mg Tablet 325 mg PO DAILY Patient Comments: no longer taking meloxicam [Mobic] 15 mg Tablet 15 mg PO DAILY Patient Comments: no longer taking lorazepam 0.5 mg tablet 0.5 mg PO DAILY PRN testosterone 10 mg/0.5 gram /actuation gel in metered-dose pump 1 pump topical DAILY acetaminophen [Acetaminophen Extra Strength] 500 mg Tablet 1,000 mg PO HS PRN aspirin [Aspir-81] 81 mg Tablet,Delayed Release (Dr/Ec) 81 mg PO DAILY
--- NOTE | 2023-04-12 11:12 | DI.VRAD_ITS ---
PROCEDURE INFORMATION: Exam: CTA Head With Contrast, Arteriography Exam date and time: 04/12/2023 8:09 AM Age: 68 years old Clinical indication: Other: Vertigo, left ear pain, headache TECHNIQUE: Imaging protocol: Computed tomographic angiography of the head with contrast. Exam focused on the arteries. 3D rendering (Not supervised by radiologist): MIP and/or 3D reconstructed images were created by the technologist. COMPARISON: No relevant prior studies available. FINDINGS: ANTERIOR CIRCULATION: Right internal carotid artery: Intracranial segment is patent with no significant stenosis. No aneurysm. Right middle cerebral artery: No occlusion or significant stenosis. No aneurysm. Right anterior cerebral artery: No occlusion or significant stenosis. No aneurysm. Left internal carotid artery: Intracranial segment is patent with no significant stenosis. No aneurysm. Left middle cerebral artery: No occlusion or significant stenosis. No aneurysm. Left anterior cerebral artery: No occlusion or significant stenosis. No aneurysm. POSTERIOR CIRCULATION: Right vertebral artery: No occlusion or significant stenosis. No aneurysm. Left vertebral artery: No occlusion or significant stenosis. No aneurysm. Basilar artery: No occlusion or significant stenosis. No aneurysm. Right posterior cerebral artery: No occlusion or significant stenosis. No aneurysm. Left posterior cerebral artery: No occlusion or significant stenosis. No aneurysm. Straight sinus: There is asymmetric enlargement of the right portion of the vena cava compared to the junction with the inferior sagittal sinus. Inseparable from the vena Marc is enlargement of the pineal gland that shows peripheral calcification. I do not believe this to be an aneurysm. Brain: See Straight sinus finding. Cerebral ventricles: No ventriculomegaly. Paranasal sinuses: Mucoperiosteal thickening involving the sphenoid sinuses. Bones/joints: Unremarkable. No acute fracture. Soft tissues: Unremarkable. IMPRESSION: 1. No acute intracranial findings. 2. The area of the pineal gland likely shows rim calcification of the gland, definitively excluding an aneurysm (very unlikely) is not possible. There is also enlargement of the portion of the vena Marc. 3. Paranasal sinusitis. PROCEDURE INFORMATION: Exam: CTA Neck With Contrast Exam date and time: 04/12/2023 8:09 AM Age: 68 years old Clinical indication: Other: Vertigo, left ear pain, headache TECHNIQUE: Imaging protocol: Computed tomographic angiography of the neck with contrast. 3D rendering (Not supervised by radiologist): MIP and/or 3D reconstructed images were created by the technologist. COMPARISON: CT CHEST PE CTA 09/11/2021 12:37 PM FINDINGS: Right common carotid artery: No stenosis. No dissection or occlusion. Right internal carotid artery: There is a large quantity of plaque burden of the bulb of the internal carotid artery. This results 50% stenosis of the proximal portion of the internal carotid artery. No dissection or occlusion. Right external carotid artery: Plaque within the bulbar areas in 40% stenosis of the proximal right external carotid artery. Left common carotid artery: No stenosis. No dissection or occlusion. Left internal carotid artery: Proximal portion has 25% stenosis. No dissection or occlusion. Left external carotid artery: No occlusion or stenosis of the origin. Right vertebral artery: No stenosis. No dissection or occlusion. Left vertebral artery: No stenosis. No dissection or occlusion. Soft tissues: Normal. No significant soft tissue swelling. Bones/joints: No acute fracture. IMPRESSION: 1. Approximally 50% stenosis of the proximal portion of the right internal carotid artery. 2. There has approximally 40% stenosis of the proximal right external carotid artery. 3. 25% stenosis of the proximal left internal carotid artery. REFERENCES: NASCET CRITERIA. The degree of stenosis in the cervical segment of the internal carotid artery is based on NASCET criteria. Normal is no stenosis. Mild is less than 50% stenosis. Moderate is 50-69% stenosis. Severe is 70% to 99% stenosis. Total occlusion is no detectable patent lumen. Dictated and Authenticated by: Bulmaro Berman MD. Ordering:NICA Lacy MD
--- NOTE | 2023-04-12 11:13 | DI.VRAD_ITS ---
PROCEDURE INFORMATION: Exam: XR Chest Exam date and time: 04/12/2023 8:27 AM Age: 68 years old Clinical indication: Other: Vertigo TECHNIQUE: Imaging protocol: Radiologic exam of the chest. Views: 2 views. COMPARISON: CT CHEST PE CTA 09/11/2021 12:37 PM FINDINGS: Lungs: Unremarkable. No consolidation. Pleural spaces: Unremarkable. No pleural effusion. No pneumothorax. Heart/Mediastinum: Unremarkable. No cardiomegaly. Bones/joints: Mild degenerative changes of the osseous structures. IMPRESSION: No acute findings. Dictated and Authenticated by: Bulmaro Berman MD. Ordering:PIRWIN Lacy MD
[2023-04-12] MEDS: Aspirin 325 MG TAB PO (12:24)
--- NOTE | 2023-04-12 12:29 | W.PM.HP.N ---
Date of service: 04/12/23 Time of Service: 12:29 Assessment and Plan Assessment and plan (1) Vertigo: Status: Acute Assessment and plan: Treat with PABLITO. Will monitor on tele. Obtain echo, MRI. Check A1C, Fasting lipid panel, TSH, b12. Neuro checks. Neurology consult. (2) Dissection, vertebral artery: Status: Acute Assessment and plan: Not clear if this is related to the patient's symptoms. Will await further recommendations by Dr Nichols (3) Hypertension: Status: Chronic Assessment and plan: Follow permissive hypertension strategy. (4) DVT prophylaxis: Status: Acute Assessment and plan: Lovenox SC (5) Discharge planning issues: Status: Acute Assessment and plan: Full code Place in observation status. discussed with DR Alan History of Present Illness History of Present Illness Chief Complaint: Vertigo Narrative: Mr Philip is a 68 year old male with PMHx of hearing loss, hyperlipidemia, pneumothorax in the past who woke up this morning with vertiginous symptoms that have resolved in the ED. His CT of the head was negative. CTA of the head and neck showed a possible dissection of the left vertebral artery. The patient is reported to have R neck discomfort, which does not match the location of the suspected dissection. The case was discussed with Dr Nichols, who recommended treating this as a TIA with PABLITO, statin (the patient states he is intolerant), monitoring on telemetry, obtaining an echo and an MRI as well as bloodwork. Observation on the hospitalist service was requested. 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 Hypogonadism male WADE (obstructive sleep apnea) Surgical History S/p total knee replacement, bilateral Social History Smoking/Tobacco Use Status: Never Smoking risk assessment performed?: Yes Alcohol Intake: current Alcohol Intake frequency: 0-2 drinks per day Alcohol type: beer Drug use: Never Substance use type: does not use Household members: spouse current occupation: [employer] - [employer] Do you feel safe at home: Yes Do you feel safe in your relationship?: Yes Meds Allergies and Home Medications Allergies Allergy/AdvReac Type Severity Reaction Status Date / Time [id number] Reductase Allergy Unverified 04/12/23 07:32 Inhibitor Home Medications Medication Instructions Recorded Confirmed Type acetaminophen 500 mg tablet 1,000 mg PO HS PRN 09/11/21 04/12/23 History (Acetaminophen Extra Strength) lorazepam 0.5 mg tablet 0.5 mg PO DAILY PRN 09/11/21 04/12/23 History magnesium 500 mg tablet 500 mg PO DAILY 09/11/21 04/12/23 History meloxicam 15 mg tablet (Mobic) 15 mg PO DAILY 09/11/21 09/11/21 History testosterone 10 mg/0.5 1 pump topical DAILY 09/11/21 04/12/23 History gram/actuation transdermal gel pump aspirin 81 mg tablet,delayed 81 mg PO DAILY 04/12/23 04/12/23 History release clopidogrel 75 mg tablet 75 mg PO DAILY #30 tabs 04/13/23 Rx esomeprazole magnesium 20 mg 20 mg PO DAILY #30 caps 04/13/23 Rx capsule,delayed release (Nexium) Exam Narrative Exam Narrative: General: [] Neurological: [] Psychiatric: [] Skin: [] HEENT: [] Cardiovascular: [] Lungs: [] Gastrointestinal: [] Genitourinary: [] Extremities: [] Const General: cooperative, healthy appearing, comfortable and no acute distress Nutritional Appearance: average body habitus Orientation: alert, awake and oriented x3 HENMT Head: normal to inspection, normocephalic and atraumatic Face and sinus: normal facial exam Mouth: oral mucosae normal Eyes General: appearance normal, both eyes and all related structures Neck Neck: normal visual inspection Chest Chest: normal inspection of the chest Resp Effort & Inspection: normal respiratory effort Cardio Rate: regular rate Rhythm: regular rhythm (sinus rhythm on the monitor, no ectopy) GI Inspection: normal to inspection Skin General skin exam: no rashes or lesions noted Neuro General: patient alert, patient awake, patient oriented x3, gait normal and no focal motor deficits Extrem General: normal to inspection, full ROM and no pedal edema Psych Appearance: grossly normal Mental Status: mental status grossly normal Speech and Movement: speech and movement normal Mood: congruent mood Affect: normal affect Attitude: cooperative Thought Process: normal Thought Content: normal Insight: insight good Judgment: judgment good Results Imaging Additional studies: CT/CTA head/neck; 1. No large vessel occlusion or significant stenosis on the CT angiography of the head.? 2. No acute intracranial process.? 3. Lucency seen through the left vertebral artery at the level of C2. This may represent a dissection. CXR: No acute findings. EKG: HR 62, NSR, no acute ischemia Labs 04/13/23 06:20 04/13/23 06:20 Labs: Laboratory Results - last 24 hr 04/12/23 04/12/23 04/12/23 06:45 06:45 06:45 WBC 6.29 RBC 5.02 Hgb 15.3 Hct 45.9 MCV 91 MCH 30.5 MCHC 33.3 RDW 12.6 Plt Count 241 MPV 10.9 Immature Gran % 0.3 Neutrophils % 42.9 Lymphocytes % 30.4 Monocytes % 11.6 Eosinophils % 13.5 Basophils % 1.3 Nucleated RBC % 0.0 Absolute Neutrophils 2.70 Absolute Lymphocytes 1.91 Absolute Monocytes 0.73 Absolute Eosinophils 0.85 H Absolute Basophils 0.08 PT 9.6 INR 0.9 APTT 26.6 Sodium 137 Potassium 3.9 Chloride 102 Carbon Dioxide 28.6 Anion Gap 6.4 BUN 13 Creatinine 1.3 Est GFR (CKD-EPI 2020) 60.59 Glucose 101 Calcium 8.8 Total Bilirubin 0.9 AST 33 ALT 42 Alkaline Phosphatase 94 Troponin I < 50 Total Protein 7.8 Albumin 3.7 Last Vital Signs Temp 36.7 C 04/12/23 06:39 Pulse 90 04/12/23 12:27 Resp 18 04/12/23 12:27 BP 151/76 H 04/12/23 12:27 Pulse Ox 99 04/12/23 12:27 PAWSS Have you Been Recently Intoxicated or Drunk Within the Last 30 days?: No Have you Ever Experienced Previous Episodes of Alcohol Withdrawal?: No Have you ever Experienced Withdrawal Seizures?: No Have you ever Experienced Delirium Tremens(DT)s?: No Have you ever undergone Alcohol Rehabilitation Treatment (i.e, inpt ot outpatient treatment programs)?: No Have you ever Experienced Blackouts?: No Have you ever Combined Alcohol with other Downers within the last 90 days?: No Have you ever Combined Alcohol with any other Substance of Abuse during the last 90 days?: No Positive Blood Alcohol level on Presentation? [PCS.BAL]: No Evidence of Increased Autonomic Activity (i.e. HR>120, tremor, sweating, agitation, nausea)?: No Result: 0 Time Spent Time spent with Patient: 40-54 minutes Time was spent: preparing to see the patient(eg.review tests), ordering medications,tests, procedures and referring, communicating with other health healthcare associate
[2023-04-12 12:56] LABS: Lab Add On Test DONE
--- NOTE | 2023-04-12 13:10 | NUR.NOTE ---
Nursing Note: Octavio took report on pt going to room 218. pt updated and comfortable at this time
[2023-04-12] MEDS: Clopidogrel 300 MG TAB PO (14:30)
--- NOTE | 2023-04-12 14:50 | DI.US_ITS ---
APPROVED REPORT EXAM: Comprehensive 2D, Doppler, and color-flow Echocardiogram Patient Location: In-Patient Room/Bed: 216 Re Recording Mixer: Anuja Ragland RDCS (AE) Indications: TIA Other Information Study Quality: Adequate Conclusion Normal left ventricular wall thickness and chamber size. Ejection fraction is 60%. Wall motion is n ormal Normal right ventricular size and systolic function Both atria are normal in size There is no structural or hemodynamically significant valvular disease Right ventricular systolic pressure could not be estimated Wall motion Left Ventricle The left ventricle is normal size. The left ventricular systolic function is normal. The left ventric ular ejection fraction is within the normal range. There is normal left ventricular wall thickness. T here is normal LV segmental wall motion. There is no ventricular septal defect visualized. LVEF is 59 %. Right Ventricle The right ventricle is normal size. The right ventricular systolic function is normal. Atria The left atrium size is normal. The right atrium size is normal. The interatrial septum is intact wit h no evidence for an atrial septal defect. Aortic Valve The aortic valve is normal in structure. Aortic valve is trileaflet. There is no aortic valvular sten osis. No aortic regurgitation is present. Mitral Valve The mitral valve is normal in structure. No evidence of mitral valve stenosis. Trace mitral regurgi tation. Tricuspid Valve The tricuspid valve is normal in structure. There is no tricuspid valve stenosis. Trace tricuspid reg urgitation. Unable to assess PA pressure. Pulmonic Valve The pulmonary valve is normal in structure. There is no pulmonic valvular stenosis. There is no pulmo mason valvular regurgitation. Great Vessels The aortic root is normal in size. The ascending aorta is normal in size. Aortic arch is normal in ca liber. IVC is normal in size and collapses >50% with inspiration. Pericardium There is no pericardial effusion. 2D Dimensions IVSD d PLAX 1.04 cm M: 0.6-1.2 LV Vol A2C d MOD 76.4 mL LVPW d PLAX 0.86 cm M: 0.6 - 1.2 LV Vol A4C d MOD 100.9 mL LVID d PLAX 4.81 cm M: 4.2 - 5.8 LA vol/ BSA A2C s A-L 21.9 mL/m2 LVDs 3.15 cm M: 2.5 - 4.0 LA vol/ BSA A4C s A-L 20.5 mL/m2 Ao Root d 3.36 cm M: 3.1 - 3.7 LA Vol/ BSA Biplane s A-L 22.4 mL/m2 RA Area A4C 10.70 cm2 LA Area A4C s MOD 16.75 cm2 RA Vol/ BSA A4C s A-L 9.5 mL/m2 LA Area A2C s MOD 16.43 cm2 Ao Asc Diam d 3.35 cm M: 2.6 - 3.4 LV EF A4C MOD 58.4 % LV EF Teichholz 62.4 % LV EF A2C MOD 60.1 % LVEF (Frey's) 59.07 % M: 52 - 72 LV EF Biplane MOD 59.1 % LV Volume 66.65 mL M: 62 - 150 SV 53.63 mL LV Volume Index 31.14 mL/m2 M: 34 - 74 SV Index 25.11 mL/m2 LV Vol Biplane MOD 90.8 mL FS 33.70 % M-Mode TAPSE 3.21 cm (M/F) >1.7 LV Diastology MV E' medial 0.077 (>0.07 m/s) E/A Ratio 0.7 LV E/e MED 9.35 (<14) MV E Vmax 0.72 (0.4-1.3 m/s) MV E' lateral 0.120 (>0.1 m/s) MV A Vmax 1.05 (0.4-1.3 m/s) LV E/e LAT 6.00 (<14) MV E/A Ratio 0.68 MV E/E' medial 9.35 MV E/E' lateral 6.01 Aortic Valve LVOT Area 3.61 cm2 AoV Area Vmax 3.21 cm2 LVOT Vmax 1.15 m/s AoV Area/ BSA (Vmax) 1.50 cm2/m2 LVOT Mean Nathaniel. 0.72 m/s CHUCKIE Mean Nathaniel. 2.94 cm2 LVOT Peak Grad 5.3 mmHg CHUCKIE Mean Nathaniel. Index 1.38 cm2/m2 LVOT Mean Grad 2.5 mmHg LVOT VTI 0.228 m LVOT Diam s 2.10 cm AoV Vmax 1.30 m/s Velocity Ratio 0.88 AoV Mean Nathaniel. 0.89 m/s AoV Peak Grad 6.7 mmHg LVOT SV 82.32 mL AoV Mean Grad 3.6 mmHg AoV VTI 0.243 m AoV Area VTI 3.39 cm2 AoV Area/ BSA (VTI) 1.59 cm/m2 Mitral Valve MV DT 352 (160-240 msec) MV PHT 102 msec MV Area PHT 2.15 cm2 Pulmonary Valve PV Vmax 1.06 (0.5-1.5 m/s) RVOT Peak Gr. 3.78 mmHg PV Peak Grad 4.5 mmHg RVOT Mean Gr. 1.65 mmHg PV Mean Grad 2.3 mmHg RVOT VTI 0.202 m PV VTI 0.185 m RVOT Vmax 0.97 m/s
[2023-04-12] MEDS: Normal Saline Flush 10 ML SYR IVP (16:44)
--- NOTE | 2023-04-12 17:54 | W.NEUROCONSU ---
Date of service: 04/12/23 Time of Service: 17:55 Assessment and Plan Assessment and plan (1) Brain TIA: Status: Acute (2) Hyperlipidemia: Status: Acute Assessment and plan: Mr. Leija is a 68 year-old with risk factors including hyperlipidemia, and untreated WADE who presents with acute event out of sleep including auditory hallucination followed by vertigo, lightheadedness, imbalance. 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 It is possible that his symptoms and subsequent symptoms are also part of migraine, but discussed that TIA is in the differential as well which I discussed with him. There is a question of L vertebral artery dissection vs artifact vs thrombus which further raises concern for TIA. 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 Pending lipid panel, consider starting PCSK9 inhibitor as an outpatient? 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 Goal SBP 120-140. Goal A1c <7. He primarily lives in [facility] and is planning to return there soon. He would like to follow-up with vascular neurology there. He will let me know who to send referral to. History of Present Illness History of Present Illness Chief Complaint: transient symptoms Narrative: Handedness: right. Mr. Leija is a 68 year-old with WADE intolerant of CPAP, hyperlipidemia - intolerant of statins with multiple prior episodes of severe rhabdo, and RYR1 mutation with frequent muscle cramps. Mr. Leija awoke out of sleep this am abruptly due to a very loud explosive metal crunching sound in his left ear. He tried to get up and fell. Gilmer very weak, disoriented, dizzy with features of lightheadedness, vertigo, and dysequilibrium; along with shortness of breath and blurred vision. He was home alone and able to call 911. At one point he felt he wasn't going to be able to continue to talk to them due to his dizziness. His symptoms were estimated to be quite severe for about ~20min. When EMS arrived, he was able to ambulate to the stretcher, but only with assistance. His symptoms slowly resolved subsequently and he feels essentially back to normal now except for some lingering fatigue/brain fog. He has no prior history of similar. He is on aspirin 81mg daily at baseline. His initial BP was 189/101. His BP has come down to 130-150s since. He has undergone the work-up as below. He was not given tPA due to resolving symptoms. He was loaded with clopidgrel 300mg x1. He has chronic right neck pain. For 1-2 years, he has had ~1x/month transient blurred vision. Unclear etiology. Of note, he flew back from [place] 1 week ago after short/sudden trip for a . He has been dealing with URI/sinus congestion since returning. Drove from [place], [place] (his primary residence) here on 04/10/23. Work-up: -CTH (04/12/23): No acute findings. I reviewed these images personally and this is my personal interpretation. -CTA head/neck (04/12/23): ~50% stenosis R common carotid with bulky plaque at the bifurcation without significant stenosis. L vertebral artery filling defect at ~C2 which could be very small dissection vs artifact vs thrombus. I reviewed these images personally and this is my personal interpretation. -TTE (04/12/23): pending. -MRI brain w/o (04/12/23): No acute findings. Old R frontal hyperintensity noted. ?prior lacunar infract? Mild chronic small vessel disease changes noted. I reviewed these images personally and this is my personal interpretation. 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 Hypogonadism male WADE (obstructive sleep apnea) Surgical History S/p total knee replacement, bilateral Social History Smoking/Tobacco Use Status: Never Smoking risk assessment performed?: Yes Alcohol Intake: current Alcohol Intake frequency: 0-2 drinks per day Alcohol type: beer Drug use: Never Substance use type: does not use Household members: spouse 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 81 Mg Tabec PO DAILY [facility] Clopidogrel Bisulfate 75 mg 04/13/23 08:30 Clopidogrel 75 Mg Tab PO DAILY [facility] Dimethicone/Zinc Oxide 0 gm 04/12/23 12:19 Mart Protect Cream 142 Gm Tube TP PRN PRN Docusate Sodium 100 mg 04/12/23 12:19 Docusate Sodium 100 Mg Cap PO TID PRN PRN Enoxaparin Sodium 40 mg 04/13/23 08:30 Enoxaparin 40 Mg/0.4 Ml Syr SC DAILY [facility] Sodium Chloride 500 mls @ 0 mls/hr 04/12/23 12:19 Saline 500ml Bag IV PRN PRN As Directed IV Miscellaneous Supplies 1 each 04/12/23 12:30 Iv Access IV DIRECTED [facility] Magnesium Hydroxide 30 ml 04/12/23 12:19 Milk Of Magnesia 30 Ml Cup PO DAILY PRN PRN Sodium Chloride 0 ml 04/12/23 12:19 04/12/23 16:44 Normal Saline Flush 10 Ml Syr IVP 10 ml PRN PRN Administration Allergies Cdsrkpy-AGE-KtJ Reductase Inhibitor Allergy (Unverified 04/12/23 07:32) Exam Narrative Exam Narrative: Physical Exam: Gen: Patient of apparent stated age, NAD Head and face: no facial or cranial abnormalities Neck: Supple, no meningismus, no occipital tenderness CV: + S1, S2, RRR, no murmur Resp: CTA B/L Abd: soft, nontender, nondistended Ext: No edema. No clubbing or cyanosis. No bony deformity. Neuro Exam: Language: fluency, naming, repetition, and comprehension intact; Mental Status: AAOx3, current events intact, fund of knowledge intact; Speech: no dysarthria Cranial nerves: Funduscopy: not performed CN II: visual vega intact CN III, IV, : extraocular movements intact, no nystagmus, pupils symmetric and reactive to light CN V: face sensation intact to LT and temp CN VII: no facial asymmetry noted CN VIII: hearing intact bilaterally CN IX, X: palate rises symmetrically CN XI: trapezius/SCM 5/5 bilaterally CN XII: protrudes tongue symmetrically Sensory: intact to LT, temp, vibration, and joint position in all extremities Motor: bulk and tone intact. Fine motor movements intact bilaterally. No pronator drift. Strength 5/5 throughout including the deltoids, biceps, triceps, wrist extensors, hip flexors, knee flexors, knee extensors, ankle flexors, and ankle extensors. Reflexes: 2+ at the biceps, triceps, brachioradialis, patella, and achilles tendons bilaterally; toes down going on right and neutral on left Coordination: FTN and HTS intact bilaterally Gait: not tested Results Last Vital Signs Temp 97.5 F L 04/12/23 14:02 Pulse 90 04/12/23 15:19 Resp 18 04/12/23 14:02 BP 121/79 04/12/23 14:02 Pulse Ox 96 04/12/23 14:02 Labs 04/12/23 06:45 04/12/23 06:45 Labs: Laboratory Results - last 24 hr 04/12/23 04/12/23 04/12/23 06:45 06:45 06:45 WBC 6.29 RBC 5.02 Hgb 15.3 Hct 45.9 MCV 91 MCH 30.5 MCHC 33.3 RDW 12.6 Plt Count 241 MPV 10.9 Immature Gran % 0.3 Neutrophils % 42.9 Lymphocytes % 30.4 Monocytes % 11.6 Eosinophils % 13.5 Basophils % 1.3 Nucleated RBC % 0.0 Absolute Neutrophils 2.70 Absolute Lymphocytes 1.91 Absolute Monocytes 0.73 Absolute Eosinophils 0.85 H Absolute Basophils 0.08 PT 9.6 INR 0.9 APTT 26.6 Sodium 137 Potassium 3.9 Chloride 102 Carbon Dioxide 28.6 Anion Gap 6.4 BUN 13 Creatinine 1.3 Est GFR (CKD-EPI 2020) 60.59 Glucose 101 Calcium 8.8 Total Bilirubin 0.9 AST 33 ALT 42 Alkaline Phosphatase 94 Troponin I < 50 Total Protein 7.8 Albumin 3.7 Add-On Test Request 04/12/23 06:45 WBC RBC Hgb Hct MCV MCH MCHC RDW Plt Count MPV Immature Gran % Neutrophils % Lymphocytes % Monocytes % Eosinophils % Basophils % Nucleated RBC % Absolute Neutrophils Absolute Lymphocytes Absolute Monocytes Absolute Eosinophils Absolute Basophils PT INR APTT Sodium Potassium Chloride Carbon Dioxide Anion Gap BUN Creatinine Est GFR (CKD-EPI 2020) Glucose Calcium Total Bilirubin AST ALT Alkaline Phosphatase Troponin I Total Protein Albumin Add-On Test Request DONE
[2023-04-12] MEDS: Magnesium Oxide 400 MG TAB PO (20:58)
[2023-04-13 00:02] VITALS: PULSE 61
[2023-04-13 07:06] LABS: Abs Immature Grans 0.03 10^3/uL (0.0-0.06); Absolute Basophil Count 0.01 10^3/uL (0.0-0.2); Absolute Eosinophil Count 0.01 10^3/uL (0.0-0.7); Absolute Lymphocyte Count 1.23 10^3/uL (1.2-3.4); Absolute Monocyte Count 0.63 10^3/uL (0.1-0.8); Absolute Neutrophil Count 6.82 10^3/uL (1.2-6.7); Basophils % 0.1; Eosinophils % 0.1; HCT 44.1 % (40.0-50.0); HGB 14.9 g/dL (13.5-17.5); Immature Grans % 0.3; Lymphocytes % 14.1; MCH 30.7 pg (27.0-33.0); MCHC 33.8 % (32.0-36.0); MCV 91 fL (80-95); MPV 11.2 fL (8.0-11.0); Monocytes % 7.2; Neutrophils % 78.2; Platelet Count 277 10^3/uL (130-400); RBC 4.85 10^6/uL (4.36-5.78); RDW 12.5 % (11.8-14.1); RDW-SD 41.3 fL; WBC 8.73 10^3/uL (4.4-10.8)
[2023-04-13 07:28] VITALS: BP 134/83; PULSE 78; RESP 18; TEMP 36.6; O2SAT 97
[2023-04-13 07:29] LABS: Anion Gap 5.2 mmol/L (3-11); BUN 15 mg/dL (7-18); CO2 27.8 mmol/L (21.0-32.0); CREATININE 1.2 mg/dL (0.70-1.30); Calcium 8.8 mg/dL (8.5-10.1); Chloride 103 mmol/L (98-107); Glucose 134 mg/dL (74-106); Magnesium 2.6 mg/dL (1.8-2.4); Potassium 4.4 mmol/L (3.5-5.1); Sodium 136 mmol/L (136-145); TSH (W/Ref FT4) 0.37 uIU/mL (0.36-3.74)
[2023-04-13 08:09] LABS: Calculated LDL 153 mg/dL (<100); Cholesterol 225 mg/dL (<200); HDL Cholesterol 57 mg/dL (40-60); Triglyceride 77 mg/dL (<150); Vitamin B12 376 pg/mL (193-986)
[2023-04-13] MEDS: Aspirin E.C. 81 MG TABEC PO (08:52)
[2023-04-13] MEDS: Magnesium Oxide 400 MG TAB PO (08:52)
[2023-04-13] MEDS: Enoxaparin 40 MG/0.4 ML SYR SC (08:53)
--- NOTE | 2023-04-13 09:30 | W.PM.DS.N ---
Date of service: 04/13/23 Time of Service: 09:30 DS: Diagnosis Discharge Diagnosis (1) Brain TIA: Status: Acute (2) Hyperlipidemia: Status: Acute Discharge Plan Disposition Patient Disposition: Home Condition: Stable Discharge Details Reason For Visit: TIA, ?vertebral artery dissection Admit Date/Time: 04/12/23 12:19 Admit Provider: Marina Alan Attending Provider: Marina Alan Primary Care Provider: Unknown,Unknown Hospital Course Hospital Course: This is a 68-year-old gentleman with past medical history significant for hyperlipidemia untreated obstructive sleep apnea who presented to the emergency department with an event that woke him from sleep described as vertigo lightheadedness gait disturbance which included auditory hallucination. He was evaluated in the emergency department for and an acute CVA differentials also included migraine variant, atypical acute coronary syndrome. Work-up included CTA of the head and neck EKG chest x-ray. He was given meclizine Zofran dexamethasone and IV fluids. He had complete resolution of his symptoms. Recommendations for admission for telemetry monitoring and further neuro work-up made and he was accepted under hospitalist service. A neurology consultation was placed. MRI of the brain was unremarkable. He remained in sinus rhythm with no symptoms while hospitalized. He was hemodynamically stable. Recommendations by neurology include a 30-day surveillance monitor at discharge. He had a Hemoglobin A1c of 6 with a goal of less than 7. LDL of 153 which is above the recommendation of less than 70. Unfortunately he is unable to tolerate statins so will defer to outpatient team. They should consider starting a PCSK9 inhibitor as an outpatient. He should also continue aspirin 81 mg along with clopidogrel 75 mg daily for secondary stroke prevention for 21 days and then continue clopidogrel after. He reported significant GI effects to similar medications in the past, he requests omeprazole over famotidine so prescription changed. He is stable and ready for discharge to home. He is returning to his home [facility] where his primary residence is. He will follow-up outpatient with vascular neurology there and plan is to notify Dr. Nichols's office so she can forward his records to the appropriate provider. He is discharged to home on a cardiac event recorder which he will mail back to her office as instructed. He is discharged to home with no new services discharge discussed with Dr. Alan Home Meds and New Rx's Prescriptions: New clopidogrel 75 mg tablet 75 mg PO DAILY Qty: 30 0RF esomeprazole magnesium [Nexium] 20 mg capsule,delayed release(DR/EC) 20 mg PO DAILY Qty: 30 0RF Continued magnesium 500 mg Tablet 500 mg PO DAILY lorazepam 0.5 mg tablet 0.5 mg PO DAILY PRN testosterone 10 mg/0.5 gram /actuation gel in metered-dose pump 1 pump topical DAILY acetaminophen [Acetaminophen Extra Strength] 500 mg Tablet 1,000 mg PO HS PRN aspirin 81 mg Tablet,Delayed Release (Dr/Ec) 81 mg PO DAILY Discontinued aspirin 325 mg Tablet 325 mg PO DAILY Patient Comments: no longer taking No Action meloxicam [Mobic] 15 mg Tablet 15 mg PO DAILY Patient Comments: no longer taking Discharge Instructions Instructions: Transient Ischemic Attack (DC) Additional Instructions: -fpc goals as outpatient for secondary stroke prevention: Goal LDL <70.? Goal SBP 120-140.? Goal A1c <7. your LDL is 153, discuss possible medication options with your outpatient team as you are intolerant of statins your hemoglobin A1C is 6, putting you at risk for diabetes, your outpatient team will continue to monitor this and make recommendations, they will likely refer you to a natural resources extension educator. wear cardiac event recorder as directed and mail back to address provided. Stand Alone Forms: Nursing Discharge Form Referrals: Unknown,Unknown [Primary Care Provider] - (outpatient neurovascular surgery) Activity:: Activity as Tolerated Equipment/Supplies:: No Equipment Needed Diet:: As Tolerated Discharge Orders Discharge Orders: Discharge Order (Routine); Ordered 04/13/23 Ordered By: Francie Johnson Other Ambulatory Orders: Cardiac Event Recorder (Routine) Timeframe: [id number] Facility: [facility] - Location: Respiratory Therapy Ordered By: Francie Johnson Discharge Data Discharge Date/Time-TO BE ENTERED AT DEPARTURE: 04/13/23 11:30 DS: Summary Time Spent with Patient providing and/or coordinating discharge services: Greater than 30 minutes Status at Discharge Functional status at discharge: independent ambulation Overall status at discharge: patient is back to baseline Mental Status: mental status grossly normal Speech and Movement: speech and movement normal Mood: congruent mood Affect: normal affect Exam Const General: cooperative, healthy appearing, comfortable and no acute distress Nutritional Appearance: average body habitus Orientation: alert, awake and oriented x3 HENMT Head: normal to inspection, normocephalic and atraumatic Face and sinus: normal facial exam Mouth: oral mucosae normal Eyes General: appearance normal, both eyes and all related structures Neck Neck: normal visual inspection Chest Chest: normal inspection of the chest Resp Effort & Inspection: normal respiratory effort Cardio Rate: regular rate Rhythm: regular rhythm (sinus rhythm on the monitor, no ectopy) GI Inspection: normal to inspection Skin General skin exam: no rashes or lesions noted Neuro General: patient alert, patient awake, patient oriented x3, gait normal and no focal motor deficits Extrem General: normal to inspection, full ROM and no pedal edema Psych Appearance: grossly normal Mental Status: mental status grossly normal Speech and Movement: speech and movement normal Mood: congruent mood Affect: normal affect Attitude: cooperative Thought Process: normal Thought Content: normal Insight: insight good Judgment: judgment good DS: Data Vitals/I&O Vitals and I&O: Vital Signs Temperature 36.6 C 04/13/23 07:28 Temperature Source Tympanic 04/13/23 07:28 Pulse 78 04/13/23 07:28 Pulse Rhythm Regular 04/13/23 01:50 Pulse 72 04/12/23 09:40 Respiratory Rate 18 04/13/23 07:28 Respiratory Effort Normal, Non-Labored 04/13/23 01:50 Respiratory Depth Normal 04/13/23 01:50 Respiratory Pattern Normal 04/13/23 01:50 Blood Pressure 134/83 04/13/23 07:28 Blood Pressure Mean 102 04/12/23 08:00 Blood Pressure Position Supine 04/12/23 06:39 Pulse Oximetry 97 04/13/23 07:28 Oxygen Delivery Method Room Air 04/13/23 07:28 Oxygen Flow Rate 0 04/13/23 07:28 Pain Level 0 04/13/23 07:28 Intake & Output 04/12/23 04/12/23 04/13/23 11:59 23:59 11:59 Intake Total 1500 / 1500 1000 / 1000 Balance 1500 / 1500 1000 / 1000 Weight 87.09 kg 88.459 kg Intake: IV 1500 / 1500 1000 / 1000 Other: Urine Color Yellow Urine Appearance Clear Clear Voiding Methods Toilet Data Completed and Pending Labs on day of discharge: Labs from last 24 hours 04/13/23 04/13/23 04/13/23 06:20 06:20 06:20 WBC 8.73 RBC 4.85 Hgb 14.9 Hct 44.1 MCV 91 MCH 30.7 MCHC 33.8 RDW 12.5 Plt Count 277 MPV 11.2 H Immature Gran % 0.3 Neutrophils % 78.2 Lymphocytes % 14.1 Monocytes % 7.2 Eosinophils % 0.1 Basophils % 0.1 Nucleated RBC % 0.0 Absolute Neutrophils 6.82 H Absolute Lymphocytes 1.23 Absolute Monocytes 0.63 Absolute Eosinophils 0.01 Absolute Basophils 0.01 Sodium 136 Potassium 4.4 Chloride 103 Carbon Dioxide 27.8 Anion Gap 5.2 BUN 15 Creatinine 1.2 Est GFR (CKD-EPI 2020) 66.70 Glucose 134 H Hemoglobin A1c 6.0 H Calcium 8.8 Magnesium 2.6 H Triglycerides 77 Total Cholesterol 225 H LDL Cholesterol, Calc 153 H HDL Cholesterol 57 Vitamin B12 376 TSH 0.37 B. divergens/MO-1 PCR Babesia duncani (PCR) Babesia microti DNA PCR Lyme Disease Antibody E.chaffeensis DNA (PCR) E.ewingii/canis DNA PCR E.muris eauclairensis (PCR) A. phagocytophilum (PCR) Blood B. miyamotoi (PCR) Add-On Test Request 04/12/23 04/12/23 06:45 06:45 WBC RBC Hgb Hct MCV MCH MCHC RDW Plt Count MPV Immature Gran % Neutrophils % Lymphocytes % Monocytes % Eosinophils % Basophils % Nucleated RBC % Absolute Neutrophils Absolute Lymphocytes Absolute Monocytes Absolute Eosinophils Absolute Basophils Sodium Potassium Chloride Carbon Dioxide Anion Gap BUN Creatinine Est GFR (CKD-EPI 2020) Glucose Hemoglobin A1c Calcium Magnesium Triglycerides Total Cholesterol LDL Cholesterol, Calc HDL Cholesterol Vitamin B12 TSH B. divergens/MO-1 PCR Pending Babesia duncani (PCR) Pending Babesia microti DNA PCR Pending Lyme Disease Antibody Pending E.chaffeensis DNA (PCR) Pending E.ewingii/canis DNA PCR Pending E.muris eauclairensis (PCR) Pending A. phagocytophilum (PCR) Pending Blood B. 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 Hypogonadism male WADE (obstructive sleep apnea) Surgical History S/p total knee replacement, bilateral Social History Smoking/Tobacco Use Status: Never Smoking risk assessment performed?: Yes Alcohol Intake: current Alcohol Intake frequency: 0-2 drinks per day Alcohol type: beer Drug use: Never Substance use type: does not use Household members: spouse 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
--- NOTE | 2023-04-13 09:38 | PDOC.CMDIS ---
Date of service: 04/13/23 Time of Service: 09:38 LACE Index Scoring Tool Questions: Length of Stay (in days): 1 Was the patient admitted via the E.D.?: Yes Comorbidities: Cerebrovascular Disease E.D. Visits: 1 Answers: Total Score: 6 Risk of Readmission: Low Risk Care Management Discharge Plan Reason for Hospitalization: TIA Discharge Plan: Papa is medically cleared for discharge and will be returning to his home in [facility] where his primary residence is. He will follow-up outpatient with vascular neurology and notify Dr. Nichols's office so she can forward his records to the appropriate provider. Cardiac event recorder is ordered prior to discharge, no new services are ordered. Patient/Family Education Needs: Review discharge instructions, limitations, medications and plan to follow up with community providers. Discuss ask me three and goals of self care.
[2023-04-13] MEDS: Famotidine 20 MG TAB PO (10:03)
[2023-04-13 10:53] LABS: Lyme Ab w Rflx to Lyme Confirm Negative (Negative)
[2023-04-13 11:03] VITALS: BP 136/83; PULSE 76; RESP 18; TEMP 36.6; O2SAT 97
[2023-04-13] MEDS: Clopidogrel 75 MG TAB PO (11:23)
[2023-04-14 19:51] LABS: Anaplasma phagocytophilum Negative (Negative); B. miyamotoi PCR Negative (Negative); Babesia divergens/MO-1 Negative (Negative); Babesia duncani Negative (Negative); Babesia microti Negative (Negative); Ehrlichia chaffeensis Negative (Negative); Ehrlichia ewingii/canis Negative (Negative); Ehrlichia muris eauclairensis Negative (Negative)
== END 2023-04-13 11:30 | disposition home or self-care (01) ==
LOC: ER 12:30 → MS 04-13 09:05
PROVIDERS: Emergency Medicine; Admitting Provider Internal Medicine; Emergency Provider Student in an Organized Health Care Education/Training Program; Visit Provider Internal Medicine
DX: G45.9 Transient cerebral ischemic attack, unspecified (principal); R42 Dizziness and giddiness; E78.5 Hyperlipidemia, unspecified; H92.02 Otalgia, left ear; G43.809 Other migraine, not intractable, without status migrainosus; W18.39XA Other fall on same level, initial encounter; G47.33 Obstructive sleep apnea (adult) (pediatric); I10 Essential (primary) hypertension; Z96.653 Presence of artificial knee joint, bilateral; G89.29 Other chronic pain; M54.2 Cervicalgia
CPT/HCPCS: 36415; 70496; 70498; 80048; 80053; 80061; 87798; 93005; 93270; 96361; 96374; 99285; J1650; 70551; 71046; 82607; 83036; 83735; 84443; 84484; 85025; 85610; 85730; 86618; 93010; 93306; 99222; 99239; G0378; J1100

== ENCOUNTER 2023-05-17 07:52 | Outpatient (CLI) | payer OTHER, SELFPAY ==
--- NOTE | 2023-05-17 08:47 | W.CARDEVENT ---
Date of service: 05/17/23 Time of Service: 08:47 Cardiac Event Recorder Referring Provider:: Joanna Andersen Indications:: Transient ischemic attack Cardiac Event Note: This is a cardiac event monitor. The patient was monitored for a total of 13 days and 5 hours Rhythm throughout was sinus. Average heart rate was 76. Minimum was 57, maximum 112 There was no atrial fibrillation, no high-grade AV block, no pauses greater than 3 seconds There were several self-limited atrial runs. These were generally 4-6 beats in duration There were several brief runs of nonsustained ventricular tachycardia, longest 8 beats There were no apparent patient symptoms
== END 2023-05-17 07:53 | disposition home or self-care (01) ==
LOC: CARDOPNVT 07:52
PROVIDERS: Visit Provider Internal Medicine Cardiovascular Disease
DX: G45.9 Transient cerebral ischemic attack, unspecified (principal); I49.1 Atrial premature depolarization; I47.20 Ventricular tachycardia, unspecified

== ENCOUNTER 2024-01-18 13:44 | Emergency (ER) | payer OTHER, SELFPAY ==
--- NOTE | 2024-01-18 13:45 | RT.EKG_ITS ---
APPROVED REPORT Exam: Resting ECG Reason for Exam: weak, dizzy, sob Patient Location: E HR:80 bpm ECG Measurements Heart Rate 80 AXIS UT 146 P 66 QRSd 89 QRS 51 QT 356 T 48 QTc 413 Conclusion Sinus rhythm...normal P axis, V-rate 60- 99
[2024-01-18 13:49] VITALS: BP 159/86; PULSE 89; RESP 16; O2SAT 99
--- NOTE | 2024-01-18 14:13 | ED.GENADUL_ITS ---
Discharge Plan Disposition Patient Disposition: Home Condition: Stable Discharge Details Clinical Impression: Palpitations Primary Care Provider: Unknown,Unknown ED Provider: Enrique Benton Home Meds and New Rx's Prescriptions: New metoprolol succinate 25 mg tablet extended release 24 hr 25 mg PO DAILY Qty: 30 0RF Continued magnesium 500 mg Tablet 500 mg PO DAILY lorazepam 0.5 mg tablet 0.5 mg PO DAILY PRN testosterone 10 mg/0.5 gram /actuation gel in metered-dose pump 1 pump topical DAILY acetaminophen [Acetaminophen Extra Strength] 500 mg Tablet 1,000 mg PO HS PRN aspirin 81 mg Tablet,Delayed Release (Dr/Ec) 81 mg PO DAILY esomeprazole magnesium [Nexium] 20 mg capsule,delayed release(DR/EC) 20 mg PO DAILY Qty: 30 0RF Discontinued meloxicam [Mobic] 15 mg Tablet 15 mg PO DAILY Patient Comments: no longer taking No Action clopidogrel 75 mg tablet 75 mg PO DAILY Qty: 30 0RF Discharge Instructions Additional Instructions: Your EKG in the emergency department, telemetry monitoring, and lab work did not show concerning findings Follow-up with your primary care provider or custom wood stair builder within 1 to 2 weeks If you feel more ill, have severe chest pain or difficulty breathing return to the emergency department for reevaluation HPI General Mode of arrival: EMS . Date/Time Provider Initiated Documentation: 01/18/24 13:53 . Limitations to Documentation: no limitations . Information obtained by: patient . History of Present Illness 68 year old M presents to the emergency department with the chief complaint of Rapid heart rate , described as moderate, Patient started experiencing this hour(s) (3) and it has been now resolved. No relieving factors improve symptom(s), No exacerbating factors reported . Patient notes shortness of breath; denies chest pain and fever/chills. Patient did receive the following treatments prior to arrival, none Related Data Home Medications Medication Instructions Recorded Confirmed acetaminophen 500 mg tablet 1,000 mg PO HS PRN 09/11/21 04/12/23 (Acetaminophen Extra Strength) lorazepam 0.5 mg tablet 0.5 mg PO DAILY PRN 09/11/21 04/12/23 magnesium 500 mg tablet 500 mg PO DAILY 09/11/21 04/12/23 testosterone 10 mg/0.5 1 pump topical DAILY 09/11/21 04/12/23 gram/actuation transdermal gel pump aspirin 81 mg tablet,delayed 81 mg PO DAILY 04/12/23 04/12/23 release clopidogrel 75 mg tablet 75 mg PO DAILY #30 tabs 04/13/23 esomeprazole magnesium 20 mg 20 mg PO DAILY #30 caps 04/13/23 capsule,delayed release (Nexium) metoprolol succinate 25 mg 25 mg PO DAILY #30 tabs 01/18/24 tablet,extended release 24 hr Previous Rx's Medication Instructions Recorded clopidogrel 75 mg tablet 75 mg PO DAILY #30 tabs 04/13/23 esomeprazole magnesium 20 mg 20 mg PO DAILY #30 caps 04/13/23 capsule,delayed release (Nexium) metoprolol succinate 25 mg 25 mg PO DAILY #30 tabs 01/18/24 tablet,extended release 24 hr Allergies Allergy/AdvReac Type Severity Reaction Status Date / Time [id number]-[id number] Reductase Allergy Other (See Unverified 01/18/24 13:53 Inhibitor Comment) General Stated Complaint: Dizzy/Sync ALEXIS: 3 Review of Systems All systems reviewed & are unremarkable except as noted in HPI and below Constitutional Constitutional: Denies chills, Denies fever(s) and Denies weakness Cardiovascular Cardiovascular: Denies chest pain and Reports dyspnea Respiratory Respiratory: Denies cough and Reports dyspnea Gastrointestinal Gastrointestinal: Denies abdominal pain, Denies nausea and Denies vomiting Musculoskeletal Musculoskeletal: Denies joint swelling Neurologic Neurologic: Denies weakness Psychiatric Psychiatric: Denies depression Exam Const General: no acute distress Orientation: alert [facility] Head: normal to inspection Ears: external ears normal General nose exam: external nose normal Mouth: moist mucous membranes Eyes General: appearance normal, both eyes and all related structures Neck Neck: normal visual inspection Resp Effort & Inspection: normal respiratory effort and able to speak in complete sentences Auscultation: clear to auscultation bilaterally Cardio Jugular venous pressure: no JVD Rate: regular rate Heart Sounds: no murmurs GI Palpation: soft and nontender Skin General skin exam: no rashes or lesions noted Neuro General: patient alert and patient oriented x3 Extrem General: normal to inspection Psych Mental Status: mental status grossly normal Course Vital Signs Vital signs: Vital Signs Pulse 89 01/18/24 13:49 Respiratory Rate 16 01/18/24 13:49 Blood Pressure 159/86 H 01/18/24 13:49 Pulse Oximetry 99 01/18/24 13:49 Pulse 89 01/18/24 13:49 Respiratory Rate 16 01/18/24 13:49 Blood Pressure 159/86 H 01/18/24 13:49 Pulse Oximetry 99 01/18/24 13:49 Oxygen Delivery Method Room Air 01/18/24 13:49 Oxygen Flow Rate 0 01/18/24 13:49 Medical Decision Making 68-year-old male with no significant cardiac history, has had a TIA in the past, comes in with EMS with complaints of earlier feeling dizzy and mild shortness of breath and felt his heart rate was elevated. He states has been trying to exercise more recently and today was cross-country skiing, started to feel like his heart rate was elevated and shortness of breath so he stopped and went home. He checked his Apple Watch with said his heart rate was elevated and that he might be in A-fib based on his EKG application which he checked twice so he called EMS. EMS noted that his heart rate did appear irregular on the first placed on the monitor but quickly resolved in sinus rhythm, we do not have any printouts of him being in A-fib. He currently is asymptomatic, denies any chest pain and never had any chest pain or pressure. He is oriented x 4 appears well speaking in full sentences in no distress. Nonfocal exam, no murmurs, clear lung sounds, no leg swelling or calf tenderness, no JVD, soft nontender abdomen. Unclear if he actually was in A-fib but will check CBC, CMP and troponin and keep him on the monitoring coordinator. Patient stable, ambulating without any symptoms still asymptomatic. Labs unremarkable. Discussed likely was in A-fib but I do not have definitive data to say that he definitively was in A-fib. Offered to do an outpatient Holter monitor which he declined. Discussed risk benefits of anticoagulation, at this time he chooses to forego anticoagulation will talk with his custom wood stair builder, will start him on a low-dose of beta-harry, return precautions given Differential Diagnosis Differential Diagnosis: A-fib, sinus tachycardia, anemia, electrolyte abnormality Medical Records Medical records reviewed: Yes I reviewed the patient's medical records. Lab Data Lab results reviewed: Yes I reviewed the patient's lab results. 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) Vertigo (Acute) Unilateral deafness (Acute) Tinnitus of left ear (Acute) Rib fractures (Acute) Pneumothorax on right (Acute) Medical History 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
[2024-01-18 14:16] LABS: Abs Immature Grans 0.03 10^3/uL (0.0-0.06); Absolute Eosinophil Count 0.46 10^3/uL (0.0-0.7); Absolute Lymphocyte Count 1.24 10^3/uL (1.2-3.4); Absolute Monocyte Count 0.47 10^3/uL (0.1-0.8); Absolute Neutrophil Count 4.69 10^3/uL (1.2-6.7); Basophils % 1.4; Eosinophils % 6.6; HCT 42.8 % (40.0-50.0); HGB 14.3 g/dL (13.5-17.5); Immature Grans % 0.4; Lymphocytes % 17.7; MCH 31.1 pg (27.0-33.0); MCHC 33.4 % (32.0-36.0); MCV 93 fL (80-95); MPV 10.1 fL (8.0-11.0); Monocytes % 6.7; Neutrophils % 67.2; Platelet Count 273 10^3/uL (130-400); RDW 12.7 % (11.8-14.1); RDW-SD 43.5 fL; WBC 6.99 10^3/uL (4.4-10.8)
[2024-01-18 14:29] LABS: PTT Activated 28.1 sec (23.6-32.8); Prothrombin Time 10.2 sec (9.1-11.1)
[2024-01-18 14:34] LABS: ALT 36 U/L (16-63); AST 26 U/L (15-37); Albumin 3.9 g/dL (3.4-5.0); Alkaline Phosphatase 75 U/L (46-116); Anion Gap 10.5 mmol/L (3-11); BUN 15 mg/dL (7-18); Bilirubin, Total 0.8 mg/dL (0.2-1.0); CO2 26.5 mmol/L (21.0-32.0); CREATININE 1.2 mg/dL (0.70-1.30); Calcium 9.2 mg/dL (8.5-10.1); Chloride 104 mmol/L (98-107); Glucose 103 mg/dL (74-106); Potassium 4.2 mmol/L (3.5-5.1); Sodium 141 mmol/L (136-145); Total Protein 7.6 g/dL (6.4-8.2); Troponin I < 50 ng/L (< or =60)
[2024-01-18 15:12] VITALS: BP 123/66; PULSE 76; RESP 16; O2SAT 99
== END 2024-01-18 15:14 | disposition home or self-care (01) ==
LOC: ER 15:18
PROVIDERS: Emergency Provider Emergency Medicine
DX: R00.2 Palpitations (principal); R06.09 Other forms of dyspnea; I10 Essential (primary) hypertension; E78.5 Hyperlipidemia, unspecified; Z79.82 Long term (current) use of aspirin; Z79.01 Long term (current) use of anticoagulants; Z86.73 Personal history of transient ischemic attack (TIA), and cerebral infarction without residual deficits
CPT/HCPCS: 80053; 93005; 99284; 83735; 84484; 85025; 85610; 85730; 93010